=== PATIENT | male | born 1990 | race African-American/Black ===

== ENCOUNTER 2020-05-29 15:24 | Emergency (ER) | payer MEDICAID ==
[~2020-05-29] VITALS: Ht 177.8 cm; Wt 82.0 kg
[2020-05-29] MEDS ORDERED: IBUP-2029 MT (15:49)
[2020-05-29] MEDS ORDERED: METH-653 MT (15:49)
[2020-05-29 15:58] VITALS: BP 136/90
[2020-05-29] MEDS: KETOROLAC 60MG/2ML VIAL IM ONE (15:58)
== END 2020-05-29 16:42 | disposition home or self-care (01) ==
LOC: ER 15:24
DX: M25.512 Pain in left shoulder (principal); M25.562 Pain in left knee; F12.10 Cannabis abuse, uncomplicated; Z98.890 Other specified postprocedural states
CPT/HCPCS: 96372; 99283; J1885